=== PATIENT | female | born 1970 | race American Indian/Alaskan Native ===

== ENCOUNTER 2017-11-13 07:36 | Outpatient (CLI) | payer BC ==
--- NOTE | 2017-11-13 15:14 | Mammography Report ---
BILATERAL DIGITAL SCREENING MAMMOGRAM with CAD: 11/13/17 07:36:00 CLINICAL: Routine screening. COMPARISON:None. FINDINGS: The breasts are heterogeneously dense, which may obscure small masses. A left asymmetry on the MLO view requires additional imaging. There is questionable correlation on the CC view. No architectural distortion or suspicious calcifications. The right breast is negative. IMPRESSION: Left asymmetry requiring further workup. BI-RADS CATEGORY: 0 -- Additional Imaging Evaluation Required RECOMMENDATION: Recall for left mediolateral , spot compression CC and MLO views and left breast ultrasound if needed. ACR BI-RADS MAMMOGRAPHIC CODES: 0 = Needs additional imaging evaluation; 1 = Negative; 2 = Benign; 3 = Probably benign; 4 = Suspicious; 5 = Malignant; 6 = Known biopsy-proven malignancy COMMENT: 1. Dense breast tissue, i.e., adenosis, fibrocystic changes, etc., may obscure an underlying neoplasm. 2. Approximately 10% of cancers are not detected with mammography. 3. A negative mammography report should not delay biopsy if a clinically suspicious mass is present. COMMENT: Patient follow-up letters are generated via our [employer] application.
== END 2017-11-13 07:37 | disposition home or self-care (01) ==
LOC: MAMMO 07:36
PROVIDERS: ATTEND Family Medicine
DX: Z12.31 Encounter for screening mammogram for malignant neoplasm of breast (principal)
CPT/HCPCS: 77067

== ENCOUNTER 2017-11-26 08:22 | Outpatient (CLI) | payer BC ==
--- NOTE | 2017-11-26 16:50 | Mammography Report ---
LEFT DIGITAL DIAGNOSTIC MAMMOGRAM and LEFT BREAST ULTRASOUND: 11/26/17 08:22:00 CLINICAL: Recalled for asymmetries. COMPARISON:11/13/17 screening FINDINGS: ML and spot compression MLO and cc views were performed. Partial effacement of asymmetries. No suspicious finding on the lateral view. Ultrasound of the upper outer left breast was performed. An oval solid heterogeneous hypoechoic mass with a mild lobular contour at 2 o'clock 5 cm from the nipple measures 2.0 x 0.7 x 1.9 cm. It correlates with the mammographic asymmetry. In addition, a complex predominantly cystic mass at 4 o'clock 6 cm from the nipple measures 1.5 x 0.9 x 0.7 cm. It has a few septations and internal echoes. IMPRESSION: A solid 2 cm mass at 2 o'clock and a predominantly cystic mass at 4 o'clock. Recommend ultrasound-guided needle core biopsy of the mass at 2 o'clock and ultrasound-guided needle aspiration and/or core biopsy of the lesion at 4 o'clock. BI-RADS CATEGORY: 4A--Mildly Suspicious The patient was notified of the recommendation for needle biopsies by the technologist at the time of the exam. ACR BI-RADS MAMMOGRAPHIC CODES: 0 = Needs additional imaging evaluation; 1 = Negative; 2 = Benign; 3 = Probably benign; 4 = Suspicious; 5 = Malignant; 6 = Known biopsy-proven malignancy COMMENT: 1. Dense breast tissue, i.e., adenosis, fibrocystic changes, etc., may obscure an underlying neoplasm. 2. Approximately 10% of cancers are not detected with mammography. 3. A negative mammography report should not delay biopsy if a clinically suspicious mass is present. COMMENT: Patient follow-up letters are generated via our [employer] application.
== END 2017-11-26 08:23 | disposition home or self-care (01) ==
LOC: MAMMO 08:22
PROVIDERS: ATTEND Family Medicine
DX: N63.21 Unspecified lump in the left breast, upper outer quadrant (principal)

== ENCOUNTER 2017-12-05 13:04 | Outpatient (CLI) | payer BC ==
--- NOTE | 2017-12-05 14:28 | Mammography Report ---
LEFT DIGITAL DIAGNOSTIC MAMMOGRAM: 12/05/17 13:04:00 CLINICAL: For clip placement immediately status post ultrasound biopsy. COMPARISON:11/16/17 FINDINGS: A biopsy clip is now identified at 2:30 o'clock and correlates with the previously described lesion. IMPRESSION: Concordant clip placement status post ultrasound biopsy. BI-RADS CATEGORY: 4A--Mildly Suspicious Pathology pending.
--- NOTE | 2017-12-05 15:03 | Ultrasound Report ---
ULTRASOUND GUIDED NEEDLE CORE BIOPSY LEFT BREAST WITH CLIP PLACEMENT: 12/05/17 CLINICAL: Left breast mass at 2 o'clock and complex cyst at 4 o'clock. COMPARISON :11/26/17 FINDINGS: The procedure was explained to the patient and informed consent was obtained. Ultrasound demonstrated the oval solid hypoechoic mass at 2 o'clock and a complex cystic lesion at 4 o'clock. The complex cyst at 4 o'clock consists of relatively anechoic cyst with a few septations. I elected to not perform a cyst aspiration in. I marked the breast with a felt tip marker and a time out was called. The skin was prepped with Betadine and anesthetized with 1% lidocaine. Needle core biopsy at 2 o'clock was performed through a tiny dermatotomy using ultrasound guidance, 2% lidocaine with epinephrine for deep anesthesia and a 14-gauge Achieve biopsy device. 3 cores were obtained and placed in formalin. A clip was deployed within the mass. The patient tolerated the procedure well and there were no apparent complications. Hemostasis was achieved with minimal pressure and a sterile dressing was applied. A two view mammogram demonstrated satisfactory placement of the clip. She left the department in good condition and was given instructions for wound care and followup. IMPRESSION: Uncomplicated ultrasound guided needle core biopsy with clip placement left breast.
== END 2017-12-05 13:05 | disposition home or self-care (01) ==
LOC: SPVWC 13:04
PROVIDERS: ATTEND Family Medicine
DX: N60.82 Other benign mammary dysplasias of left breast (principal)
CPT/HCPCS: 88305